=== PATIENT | male | born 1955 | race Caucasian/White ===

== ENCOUNTER 2022-08-19 19:40 | Inpatient (IN) | payer MEDICARE, OTHER ==
[~2022-08-19] VITALS: Ht 172.7 cm; Wt 60.8 kg
--- NOTE | 2022-08-19 19:48 | NUR ---
Dr. Jaciel Godoy at bedside for MSE for medical clearance.
[2022-08-19 20:04] LABS: HEMATOCRIT 33.3 % (36.7-47.1); MEAN CORPUSCULAR HEMOGLOBIN 30.8 uug (23.8-33.4); MEAN CORPUSCULAR VOLUME 89.7 fL (73.0-96.2); PLATELET COUNT (AUTO) 292 K/uL (152-348)
[2022-08-19 20:41] LABS: ALANINE AMINOTRANSFERASE 23 U/L (16-63); ALKALINE PHOSPHATASE 103 U/L (50-136); ASPARTATE AMINOTRANSFERASE < 5 U/L (15-37); BILIRUBIN,DIRECT < 0.1 mg/dL (0.0-0.2); BILIRUBIN,TOTAL 0.2 mg/dL (0.2-1.0); CARBON DIOXIDE 28 mmol/L (21-32); CHLORIDE 98 mmol/L (98-107); GLUCOSE 129 mg/dL (74-106); TOTAL PROTEIN, SERUM 6.7 g/dL (6.4-8.2); UREA NITROGEN, BLOOD 15 mg/dL (7-18)
[2022-08-19 20:46] LABS: ACETAMINOPHEN < 2.0 ug/mL (10-30)
[2022-08-19 21:04] LABS: *AMPHETAMINE, URINE NEGATIVE (NEGATIVE); *CANNABINOID, URINE NEGATIVE (NEGATIVE); *COCCAINE, URINE NEGATIVE (NEGATIVE); *PHENCYCLIDINE SCREEN,URINE NEGATIVE (NEGATIVE)
[2022-08-19 21:13] LABS: *BILIRUBIN,URIN NEGATIVE (NEGATIVE); *CLARITY,URINE CLEAR (CLEAR); *COLOR,URINE YELLOW (YELLOW); *KETONES,URINE NEGATIVE (NEGATIVE); *UROBILINOGEN,URINE 0.2 E.U./dl (NORMAL); LEUKOCYTE ESTERASE ,URINE NEGATIVE (NEGATIVE); NITRITE, URINE NEGATIVE (NEGATIVE); UGLUCOSE NEGATIVE (NEGATIVE)
[2022-08-19 21:38] LABS: *BLOOD, URINE TRACE (NEGATIVE)
--- NOTE | 2022-08-19 21:45 | NUR ---
Patient has been medically cleared by Dr Grissom
--- NOTE | 2022-08-19 22:12 | NUR ---
Called [facility] for psych eval
--- NOTE | 2022-08-19 22:46 | NUR ---
PET Team arrived to do eval.
[2022-08-19] MEDS ORDERED: PANT40TA49 PO (22:49)
[2022-08-19] MEDS ORDERED: FLUV100T3 PO (22:49)
[2022-08-19] MEDS ORDERED: QUET25TA PO (22:49)
[2022-08-19] MEDS ORDERED: FLUT1DIS28 IH (22:49)
[2022-08-19] MEDS ORDERED: DOCU100C36 PO (22:49)
[2022-08-19] MEDS ORDERED: ASPI81TA31 PO (22:49)
[2022-08-19] MEDS ORDERED: CITA20TA16 PO (22:49)
--- NOTE | 2022-08-19 23:25 | NUR ---
Report given to U HUNG Almonte.
--- NOTE | 2022-08-19 23:55 | NUR ---
Pt. admitted to [facility] unit room #145B, under care of Dr. Granados and Dr Albarran. Belongings list completed.
[2022-08-20] MEDS ORDERED: ACETAMINOPHEN 325 MG TABLET PO PRN
--- NOTE | 2022-08-20 | NUR ---
Admitted patient under the care of DR Albarran and Dr Galvan, patient alert oriented, continent of bladder. Patient has r check scratches, nose, forehead, and on left ear. Patient skin intact, with garbled speech, took away contraband belongings, place it in the bag, Patient calm and cooperative at this time. Patient wanted to get out of patio but reorient that, patio is lack at this time. Patient in and out of bed, ambulate with the walker with steady gait, cont to monitor.
[2022-08-20 00:02] LABS: BACTERIA,URINE NONE SEEN /HPF (NONE SEEN); RBC,URINE 0-3 /HPF (0-3); SQUAMOUS EPITHELIAL CELL,UR NONE SEEN /HPF (NONE SEEN); WBC,URINE 0-3 /HPF (0-3)
[2022-08-20 00:09] VITALS: BP 139/75
[2022-08-20] MEDS: ZOLPIDEM 5 MG TABLET PO PRN ×2 (00:48→22:02)
[2022-08-20] MEDS ORDERED: BENZ2AMP3 PO (02:27)
[2022-08-20] MEDS ORDERED: RISP2TAB5 PO (02:27)
[2022-08-20] MEDS ORDERED: PALI234D IM (02:27)
--- NOTE | 2022-08-20 03:53 | NUR ---
GPS: Pt.was given his advisement and pt's rights handbook. Unit rules explained. Safe environment provided.
[2022-08-20] MEDS ORDERED: REMEDY ESSENTIAL ZINC PASTE 113 GM TOP PRN (06:00)
[2022-08-20 07:30] VITALS: BP 129/99
[2022-08-20] MEDS: NICOTINE 21 MG/24HR PATCH TD SCH (08:45)
--- NOTE | 2022-08-20 10:16 | NUR ---
Nursing - Patient's sister Debi called providing more informations about her brother ( Marco) . Patient sister Stephany has the DPOA, will visit at noon today and will bring copies of pertinent data/papers necessary . Home # [phone], . Stephany was able to talked to Dr Albarran.
[2022-08-20] MEDS: risperiDONE 2 MG TABLET PO SCH ×2 (10:29→16:44)
[2022-08-20] MEDS: MAG HYDROX/AL HYDROX/SIMETH 30 ML LIQUID UDC PO PRN (11:30)
--- NOTE | 2022-08-20 13:00 | NUR ---
Nursing- Patients' sister Stephany came in to visit patient, brought copies of DPOA and Advance Directives for Health care, as well as she made a written informations on what transpired on patient Mental Health condition as well as his physical well being the past weeks, claimed he 's deteriorating and encouraged the staff to read it. Reassured Stephany(sister) will tell staff to read when they have the chance.
--- NOTE | 2022-08-20 14:48 | NUR ---
NICOLASA Initial Discharge Note: Pt currently resides at [facility] [address] [place] [address] ([phone]). Per facility, they are unable to continue care for the pt upon discharge. NICOLASA spoke with pt's sister/DPOA, Stephany [phone] who is aware that pt will not return to [facility]. Stephany is aware and agreeable that this medical technical writer will continue to work with her regarding pt's discharge plan. NICOLASA will continue to work with the pt, family and MD to ensure a safe and proper discharge plan.
[2022-08-20 16:14] VITALS: BP 92/50
[2022-08-20] MEDS: BENZTROPINE MESYLATE 1 MG TABLET PO SCH (16:43)
[2022-08-20 20:00] VITALS: BP 108/63
[2022-08-20] MEDS: MEMANTINE HCL 5 MG TABLET PO SCH (20:12)
[2022-08-21] MEDS: MAGNESIUM HYDROXIDE 30 ML LIQUID UDC PO PRN (00:11)
--- NOTE | 2022-08-21 00:14 | NUR ---
patient c/o constipation mom ml po given for constipation.
[2022-08-21] MEDS: ONDANSETRON ODT 4 MG TAB.RAPDIS SL PRN (03:43)
--- NOTE | 2022-08-21 03:45 | NUR ---
patient c/o nausea and vomited small amount clear liquid. zofran mg po prn given for nausea/vomit.
--- NOTE | 2022-08-21 04:51 | NUR ---
patient stated no more n/v,prn effective.
--- NOTE | 2022-08-21 04:53 | NUR ---
NSG: Remain calm and cooperative. patient ambulate with fww. po prn given for sleep and n/v. both prn effective. watching tv in day room. Denies pain or discomfort at this time. assisted with adl's. continue monitoring for safety.
--- NOTE | 2022-08-21 06:32 | NUR ---
slept 4 hrs through the night.
[2022-08-21 07:47] VITALS: BP 119/59
[2022-08-21] MEDS: NICOTINE 21 MG/24HR PATCH TD SCH (08:26)
[2022-08-21] MEDS: CITALOPRAM 20 MG TABLET PO SCH (08:27)
[2022-08-21] MEDS: BENZTROPINE MESYLATE 1 MG TABLET PO SCH ×2 (08:27→16:58)
[2022-08-21] MEDS: risperiDONE 2 MG TABLET PO SCH ×2 (08:27→16:58)
[2022-08-21] MEDS: MEMANTINE HCL 5 MG TABLET PO SCH ×2 (08:27→20:48)
[2022-08-21] MEDS: LORAZEPAM 1 MG TABLET PO PRN (14:24)
--- NOTE | 2022-08-21 14:38 | NUR ---
Received patient is alert and oriented x3 ,ambulating with walker ,interacts with staff when engaged, making simple needs know.compliant with all medication, attends and participates with his group . needed redirections sometime ,will continue close monitoring .
[2022-08-21 16:34] VITALS: BP 99/63
[2022-08-21 19:55] VITALS: BP 106/55
[2022-08-21] MEDS: ZOLPIDEM 5 MG TABLET PO PRN (20:48)
--- NOTE | 2022-08-22 06:58 | NUR ---
Pt was noted to be getting up multiple times through the night and stating he wants to go to the tv room. Pt is redirectable. Pt agreed to take a shower. Pt is forgetful, but redirectable.
[2022-08-22 08:12] VITALS: BP 110/67
[2022-08-22] MEDS: NICOTINE 21 MG/24HR PATCH TD SCH (08:47)
[2022-08-22] MEDS: BENZTROPINE MESYLATE 1 MG TABLET PO SCH ×2 (08:48→16:30)
[2022-08-22] MEDS: risperiDONE 2 MG TABLET PO SCH ×2 (08:48→16:31)
[2022-08-22] MEDS: CITALOPRAM 20 MG TABLET PO SCH (08:48)
[2022-08-22] MEDS: MEMANTINE HCL 5 MG TABLET PO SCH ×2 (08:48→20:06)
[2022-08-22] MEDS: ONDANSETRON ODT 4 MG TAB.RAPDIS SL PRN (10:16)
[2022-08-22] MEDS: LORAZEPAM 1 MG TABLET PO PRN (11:12)
[2022-08-22 13:44] LABS: HEMATOCRIT 33.4 % (36.7-47.1); MEAN CORPUSCULAR HEMOGLOBIN 30.8 uug (23.8-33.4); PLATELET COUNT (AUTO) 304 K/uL (152-348)
[2022-08-22 13:59] LABS: BILIRUBIN,TOTAL 0.3 mg/dL (0.2-1.0); CREATININE 0.9 mg/dL (0.6-1.3); POTASSIUM 4.3 mmol/L (3.5-5.1); TOTAL PROTEIN, SERUM 7.1 g/dL (6.4-8.2)
[2022-08-22 16:37] VITALS: BP 101/71
--- NOTE | 2022-08-22 16:50 | NUR ---
Received patient is alert and oriented x3 ,ambulating with walker ,interacts with staff when engaged, making simple needs know.compliant with all medication, attends and participates with his group . ambulating with FWW needed redirections sometime ,will continue close monitoring .
[2022-08-22] MEDS ORDERED: FLUTICASONE/SALMETEROL 250/50 INHALER IH SCH (17:30)
[2022-08-22] MEDS: ASPIRIN 81 MG TAB.CHEW PO SCH (17:30)
[2022-08-22] MEDS: DOCUSATE SODIUM 100 MG CAPSULE PO SCH (17:44)
[2022-08-22] MEDS: FLUTICASONE/VILANTEROL 1 EACH BLST.W.DEV INH SCH (18:30)
[2022-08-22 19:53] VITALS: BP 104/68
--- NOTE | 2022-08-23 04:54 | NUR ---
Received pt in dinning room watching television, less anxious, pleasant on approach and cooperative. Pt is compliant with medications and care. Pt needs minimal assistance with ADLs and ambulates with front wheel walker. Reassurance and emotional support provided, safety measures in place. Continue to monitor for safety.
[2022-08-23] MEDS: PANTOPRAZOLE SODIUM 40 MG TABLET.DR PO SCH (06:24)
[2022-08-23 08:12] VITALS: BP 94/62
[2022-08-23] MEDS: risperiDONE 2 MG TABLET PO SCH ×2 (08:28→17:06)
[2022-08-23] MEDS: BENZTROPINE MESYLATE 1 MG TABLET PO SCH ×2 (08:28→17:06)
[2022-08-23] MEDS: CITALOPRAM 20 MG TABLET PO SCH (08:28)
[2022-08-23] MEDS: DOCUSATE SODIUM 100 MG CAPSULE PO SCH (08:28)
[2022-08-23] MEDS: ASPIRIN 81 MG TAB.CHEW PO SCH (08:28)
[2022-08-23] MEDS: NICOTINE 21 MG/24HR PATCH TD SCH (08:28)
[2022-08-23] MEDS: MEMANTINE HCL 5 MG TABLET PO SCH ×2 (08:28→21:23)
[2022-08-23] MEDS: FLUTICASONE/VILANTEROL 1 EACH BLST.W.DEV INH SCH (08:29)
[2022-08-23 16:04] VITALS: BP 100/65
[2022-08-23 19:46] VITALS: BP 104/65
[2022-08-23] MEDS: FLUVOXAMINE MALEATE 50 MG TABLET PO SCH (21:23)
[2022-08-24] MEDS: PANTOPRAZOLE SODIUM 40 MG TABLET.DR PO SCH (06:49)
[2022-08-24 07:44] LABS: CREATININE 0.8 mg/dL (0.6-1.3); MAGNESIUM 2.1 mg/dL (1.8-2.4); POTASSIUM 4.5 mmol/L (3.5-5.1)
[2022-08-24 08:23] VITALS: BP 107/56
[2022-08-24 08:31] LABS: THYROID STIMULATING HORMONE 0.732 mIU/mL (0.358-3.740)
[2022-08-24] MEDS: NICOTINE 21 MG/24HR PATCH TD SCH (08:55)
[2022-08-24] MEDS: DOCUSATE SODIUM 100 MG CAPSULE PO SCH (08:56)
[2022-08-24] MEDS: FLUTICASONE/VILANTEROL 1 EACH BLST.W.DEV INH SCH (08:56)
[2022-08-24] MEDS: risperiDONE 2 MG TABLET PO SCH ×2 (08:56→16:31)
[2022-08-24] MEDS: MEMANTINE HCL 5 MG TABLET PO SCH ×2 (08:56→21:06)
[2022-08-24] MEDS: ASPIRIN 81 MG TAB.CHEW PO SCH (08:56)
[2022-08-24] MEDS: BENZTROPINE MESYLATE 1 MG TABLET PO SCH ×2 (08:56→16:31)
--- NOTE | 2022-08-24 15:23 | NUR ---
Received patient awake in his room. Patient is talkative, disorganized, forgetful, confused at times, cooperative with nursing care, compliant with medications. Patient is A/O X 2 to person. Patient interacts with staff, peers, and participates in group activities. Reassurance given. Fall and safety precautions implemented.
[2022-08-24 15:50] VITALS: BP 114/79
[2022-08-24 19:51] VITALS: BP 106/68
[2022-08-24] MEDS: FLUVOXAMINE MALEATE 50 MG TABLET PO SCH (21:06)
[2022-08-24] MEDS: LORAZEPAM 1 MG TABLET PO PRN (21:54)
--- NOTE | 2022-08-24 22:05 | NUR ---
Shortly after taking his 2100 hour medications, pt stated he needed help because his mind was restless. Pt stated "I can't stop my mind." "I need help to stop my mind." Pt denied SI/HI and is contracted for safety. Gave Ativan 1mg to help calm his thoughts and overall mood. Will continue to provide a safe environment.
[2022-08-25] MEDS: MAGNESIUM HYDROXIDE 30 ML LIQUID UDC PO PRN (05:48)
--- NOTE | 2022-08-25 05:51 | NUR ---
Pt requested medication to help with having a BM. Pt stated "I have not gone in a few days." "I can't go on my own." Gave MOM 30mL po prn for constipation mgt. Will continue to monitor.
[2022-08-25] MEDS: PANTOPRAZOLE SODIUM 40 MG TABLET.DR PO SCH (06:35)
[2022-08-25 07:38] VITALS: BP 92/62
[2022-08-25] MEDS: FLUTICASONE/VILANTEROL 1 EACH BLST.W.DEV INH SCH (08:49)
[2022-08-25] MEDS: NICOTINE 21 MG/24HR PATCH TD SCH (08:49)
[2022-08-25] MEDS: ASPIRIN 81 MG TAB.CHEW PO SCH (08:50)
[2022-08-25] MEDS: risperiDONE 2 MG TABLET PO SCH ×2 (08:50→16:24)
[2022-08-25] MEDS: MEMANTINE HCL 5 MG TABLET PO SCH ×2 (08:50→21:08)
[2022-08-25] MEDS: DOCUSATE SODIUM 100 MG CAPSULE PO SCH (08:50)
[2022-08-25] MEDS: BENZTROPINE MESYLATE 1 MG TABLET PO SCH ×2 (08:50→16:24)
[2022-08-25] MEDS ORDERED: PALIPERIDONE PALMITATE 234 MG/1.5 ML SYRINGE IM SCH (09:00)
--- NOTE | 2022-08-25 09:45 | NUR ---
Invega 234 mg/1.5 ml given at 09:40AM as prescribed monthly.
--- NOTE | 2022-08-25 14:54 | NUR ---
Patient is talkative, confused, disorganized, needs to be redirected, demanding, needy. A/O X 2 to person, place. Reality orientation provided. Fall and safety precautions implemented.
[2022-08-25 15:07] VITALS: BP 107/68
[2022-08-25 19:56] VITALS: BP 108/75
[2022-08-25] MEDS: FLUVOXAMINE MALEATE 50 MG TABLET PO SCH (21:09)
[2022-08-26] MEDS: PANTOPRAZOLE SODIUM 40 MG TABLET.DR PO SCH (07:06)
[2022-08-26] MEDS: NICOTINE 21 MG/24HR PATCH TD SCH (09:03)
[2022-08-26] MEDS: MEMANTINE HCL 5 MG TABLET PO SCH ×2 (09:04→21:05)
[2022-08-26] MEDS: BENZTROPINE MESYLATE 1 MG TABLET PO SCH ×2 (09:04→17:33)
[2022-08-26] MEDS: ASPIRIN 81 MG TAB.CHEW PO SCH (09:04)
[2022-08-26] MEDS: FLUTICASONE/VILANTEROL 1 EACH BLST.W.DEV INH SCH (09:04)
[2022-08-26] MEDS: DOCUSATE SODIUM 100 MG CAPSULE PO SCH (09:04)
[2022-08-26 09:08] VITALS: BP 106/58
--- NOTE | 2022-08-26 14:15 | NUR ---
Patient had court hearing today, and dinkey operator Sheila Morales gave 14 Day probable for GD only.
[2022-08-26 15:30] VITALS: BP 115/75
[2022-08-26] MEDS: LORAZEPAM 1 MG TABLET PO PRN (15:52)
--- NOTE | 2022-08-26 16:01 | NUR ---
Patient is given Ativan 1 mg at 15:52, will be monitored for effectiveness.
--- NOTE | 2022-08-26 19:50 | NUR ---
Patient is cooperative with nursing care, demanding, needy, compliant with medications, anxious at times. A/O X 2 to person, place. Patient is encourage to verbalize concerns. Fall and safety precautions implemented.
[2022-08-26 20:36] VITALS: BP 115/67
[2022-08-26] MEDS: FLUVOXAMINE MALEATE 50 MG TABLET PO SCH (21:06)
--- NOTE | 2022-08-26 23:22 | NUR ---
GPS: Pt.is less anxious and needy tonight so far. Re-directed and re-assured prn. Safety emphasized. Needs attended. Will continue to monitor.
[2022-08-27] MEDS: MAG HYDROX/AL HYDROX/SIMETH 30 ML LIQUID UDC PO PRN (04:02)
[2022-08-27] MEDS: PANTOPRAZOLE SODIUM 40 MG TABLET.DR PO SCH (06:03)
--- NOTE | 2022-08-27 07:30 | NUR ---
GPS Nursing Notes: patient in bed awake, denies pain or discomforts, Fall and safety precautions implemented.
[2022-08-27 08:00] VITALS: BP 115/76
[2022-08-27] MEDS: NICOTINE 21 MG/24HR PATCH TD SCH (08:22)
[2022-08-27] MEDS: ASPIRIN 81 MG TAB.CHEW PO SCH (08:22)
[2022-08-27] MEDS: FLUTICASONE/VILANTEROL 1 EACH BLST.W.DEV INH SCH (08:22)
[2022-08-27] MEDS: BENZTROPINE MESYLATE 1 MG TABLET PO SCH ×2 (08:22→17:18)
[2022-08-27] MEDS: DOCUSATE SODIUM 100 MG CAPSULE PO SCH (08:22)
[2022-08-27] MEDS ORDERED: MEMANTINE HCL 5 MG TABLET PO SCH (09:00)
[2022-08-27] MEDS: MEMANTINE HCL 10 MG TABLET PO SCH ×2 (09:03→20:52)
--- NOTE | 2022-08-27 10:29 | NUR ---
GPS Nursing notes: Patient is pacing up and down hallway, forgetful at times, confused, with disorganized thoughts, "You need to remember 503", patient follow directions, took morning medications. Encourage patient to use FWW when he ambulates. fall and safety precaution implemented, emotional support provided.
--- NOTE | 2022-08-27 11:56 | NUR ---
SW Discharge Update: NICOLASA spoke with pt's sister/DPOA, Stephany [phone] who stated she is happy with Dr. Albarran's care and would like for the pt to continue care under Dr. Albarran. Per Dr. Albarran, NICOLASA will refer to [facility]. NICOLASA will update Stephany on updates.
[2022-08-27 15:12] VITALS: BP 125/81
[2022-08-27 20:05] VITALS: BP 127/74
[2022-08-27] MEDS: FLUVOXAMINE MALEATE 50 MG TABLET PO SCH (20:52)
[2022-08-27] MEDS: LORAZEPAM 1 MG TABLET PO PRN (23:10)
[2022-08-28] MEDS: LORAZEPAM 1 MG TABLET PO PRN ×2 (05:38→15:18)
[2022-08-28] MEDS: PANTOPRAZOLE SODIUM 40 MG TABLET.DR PO SCH (06:10)
--- NOTE | 2022-08-28 06:36 | NUR ---
GPS: Pt.slept 5.15 last night. Pt.was anxious,restless earlier. Re-assured and re-directed. Ativan 1mg given PO with effect. Safe environment provided. Needs attended. Denies SI at this time.
--- NOTE | 2022-08-28 07:15 | NUR ---
GPS Nursing notes: Patient is in room lying in bed, no S/S of distress. Will continue to monitor.
[2022-08-28 07:44] VITALS: BP 118/59
[2022-08-28] MEDS: BENZTROPINE MESYLATE 1 MG TABLET PO SCH ×2 (08:40→16:20)
[2022-08-28] MEDS: MEMANTINE HCL 10 MG TABLET PO SCH ×2 (08:40→20:00)
[2022-08-28] MEDS: NICOTINE 21 MG/24HR PATCH TD SCH (08:40)
[2022-08-28] MEDS: DOCUSATE SODIUM 100 MG CAPSULE PO SCH (08:40)
[2022-08-28] MEDS: FLUTICASONE/VILANTEROL 1 EACH BLST.W.DEV INH SCH (08:41)
[2022-08-28] MEDS: ASPIRIN 81 MG TAB.CHEW PO SCH (08:41)
--- NOTE | 2022-08-28 09:39 | NUR ---
GPS Nursing notes: Patient is ambulating with FWW this morning, patient stated " I am Exercising", denies pain or this comfort. fall and safety precaution implemented. Will continue to monitor.
--- NOTE | 2022-08-28 13:17 | NUR ---
GPS Nursing notes: Patient focus on drinking water constantly, educated patient not over-hydrated him self, patient also take water from the sink, needs frequent redirection, patient refused to showered at this time. fall and safety precautions implemented, emotional support provided.
[2022-08-28 16:30] VITALS: BP 103/66
[2022-08-28 20:00] VITALS: BP 120/66
[2022-08-28] MEDS: FLUVOXAMINE MALEATE 50 MG TABLET PO SCH (20:00)
[2022-08-29] MEDS: PANTOPRAZOLE SODIUM 40 MG TABLET.DR PO SCH (06:11)
[2022-08-29] MEDS: LORAZEPAM 1 MG TABLET PO PRN ×2 (06:49→15:02)
[2022-08-29 08:09] VITALS: BP 105/66
[2022-08-29] MEDS: NICOTINE 21 MG/24HR PATCH TD SCH (08:29)
[2022-08-29] MEDS: BENZTROPINE MESYLATE 1 MG TABLET PO SCH ×2 (08:29→17:15)
[2022-08-29] MEDS: ASPIRIN 81 MG TAB.CHEW PO SCH (08:29)
[2022-08-29] MEDS: DOCUSATE SODIUM 100 MG CAPSULE PO SCH (08:30)
[2022-08-29] MEDS: MEMANTINE HCL 10 MG TABLET PO SCH ×2 (08:30→20:29)
[2022-08-29] MEDS: FLUTICASONE/VILANTEROL 1 EACH BLST.W.DEV INH SCH (08:31)
--- NOTE | 2022-08-29 16:05 | NUR ---
Received patient is alert and oriented x3 ,ambulating with walker ,interacts with staff when engaged, making simple needs know.compliant with all medication, needy and attention seeking ,attends and participates with his group . ambulating with FWW needed redirections sometime ,will continue close monitoring .
[2022-08-29 16:20] VITALS: BP 105/77
[2022-08-29 19:50] VITALS: BP 139/91
[2022-08-29] MEDS: FLUVOXAMINE MALEATE 50 MG TABLET PO SCH (20:29)
[2022-08-30] MEDS: LORAZEPAM 1 MG TABLET PO PRN ×2 (00:36→18:07)
--- NOTE | 2022-08-30 00:44 | NUR ---
Gave pt Lorazepam po prn for increased anxiety and to help pt calm down. Pt was making statement such as "I can't think anymore." "I'm like a 4 y/o now." Safe environment provided. Will continue to monitor.
[2022-08-30] MEDS: ZOLPIDEM 5 MG TABLET PO PRN (02:59)
[2022-08-30] MEDS: PANTOPRAZOLE SODIUM 40 MG TABLET.DR PO SCH (06:04)
[2022-08-30 07:55] VITALS: BP 131/84
[2022-08-30] MEDS: MEMANTINE HCL 10 MG TABLET PO SCH ×2 (08:37→20:06)
[2022-08-30] MEDS: BENZTROPINE MESYLATE 1 MG TABLET PO SCH ×2 (08:37→17:13)
[2022-08-30] MEDS: FLUTICASONE/VILANTEROL 1 EACH BLST.W.DEV INH SCH (08:37)
[2022-08-30] MEDS: ASPIRIN 81 MG TAB.CHEW PO SCH (08:37)
[2022-08-30] MEDS: DOCUSATE SODIUM 100 MG CAPSULE PO SCH (08:37)
[2022-08-30] MEDS: NICOTINE 21 MG/24HR PATCH TD SCH (08:38)
[2022-08-30 16:21] VITALS: BP 103/70
[2022-08-30] MEDS ORDERED: OLANZAPINE 10 MG VIAL IM ONE (18:30)
--- NOTE | 2022-08-30 18:40 | NUR ---
noted patient pacing in hallway hitting himself and scratched his face and right ear ,Dr. Albarran notified with Zyprexa 10 mg IM given .
[2022-08-30 19:46] VITALS: BP 111/74
[2022-08-30] MEDS: FLUVOXAMINE MALEATE 50 MG TABLET PO SCH (20:05)
[2022-08-31] MEDS: PANTOPRAZOLE SODIUM 40 MG TABLET.DR PO SCH (06:20)
[2022-08-31 06:58] LABS: MEAN CORPUSCULAR HEMOGLOBIN 31.2 uug (23.8-33.4); MEAN CORPUSCULAR VOLUME 89.8 fL (73.0-96.2); PLATELET COUNT (AUTO) 377 K/uL (152-348)
[2022-08-31 07:30] LABS: BILIRUBIN,TOTAL 0.2 mg/dL (0.2-1.0); CREATININE 0.9 mg/dL (0.6-1.3); PHOSPHOROUS 3.3 mg/dL (2.5-4.9); POTASSIUM 4.3 mmol/L (3.5-5.1); TOTAL PROTEIN, SERUM 6.9 g/dL (6.4-8.2)
--- NOTE | 2022-08-31 07:30 | NUR ---
GPS Nursing notes: Patient walking down hallway, ambulating with FWW, focus on discharge, patient spoke with dr Gastelum, due yesterday behavior patient staying in unit, discharge cancel by Psychiatrist. Fall and safety precaution implemented, emotional support provided.
[2022-08-31 08:00] VITALS: BP 98/70
[2022-08-31] MEDS: FLUTICASONE/VILANTEROL 1 EACH BLST.W.DEV INH SCH (08:42)
[2022-08-31] MEDS: MEMANTINE HCL 10 MG TABLET PO SCH ×2 (08:42→20:48)
[2022-08-31] MEDS: LITHIUM CARBONATE 300 MG CAPSULE PO SCH ×2 (08:42→16:15)
[2022-08-31] MEDS: BENZTROPINE MESYLATE 1 MG TABLET PO SCH ×2 (08:42→16:15)
[2022-08-31] MEDS: NICOTINE 21 MG/24HR PATCH TD SCH (08:43)
[2022-08-31] MEDS: DOCUSATE SODIUM 100 MG CAPSULE PO SCH (08:43)
[2022-08-31] MEDS: ASPIRIN 81 MG TAB.CHEW PO SCH (08:44)
[2022-08-31] MEDS: LORAZEPAM 1 MG TABLET PO PRN ×3 (09:26→18:09)
--- NOTE | 2022-08-31 11:59 | NUR ---
GPS Nursing Notes: Patient crying aloud, stated "I dont want to be on the street", Patient worries about not going to SNF, PRN for anxiety given, slight effective, patient spoke to sister, Per Patient "I was hitting my self yesterday". Redirected on express feeling in an appropriated manner. Fall and safety precautions implemented, emotional support provided. Will continue to monitor.
[2022-08-31 16:00] VITALS: BP 115/71
--- NOTE | 2022-08-31 18:36 | NUR ---
GPS nursing notes: Patient crying loudly, when ask why was he crying he stated, "The lady is talking and laugh at me!" reassure patient that no one was talking about him, emotional support provided, instructed patient to express his concerns and feels in an appropriated manner, as needed medication for anxiety given, continue to provided emotional support.
[2022-08-31 20:03] VITALS: BP 111/68
[2022-08-31] MEDS: FLUVOXAMINE MALEATE 50 MG TABLET PO SCH (20:48)
[2022-09-01] MEDS: PANTOPRAZOLE SODIUM 40 MG TABLET.DR PO SCH (06:50)
[2022-09-01 08:00] VITALS: BP 124/82
[2022-09-01] MEDS: LITHIUM CARBONATE 300 MG CAPSULE PO SCH ×2 (08:18→16:37)
[2022-09-01] MEDS: BENZTROPINE MESYLATE 1 MG TABLET PO SCH ×2 (08:18→16:37)
[2022-09-01] MEDS: MEMANTINE HCL 10 MG TABLET PO SCH ×2 (08:18→20:38)
[2022-09-01] MEDS: DOCUSATE SODIUM 100 MG CAPSULE PO SCH (08:18)
[2022-09-01] MEDS: ASPIRIN 81 MG TAB.CHEW PO SCH (08:18)
[2022-09-01] MEDS: FLUTICASONE/VILANTEROL 1 EACH BLST.W.DEV INH SCH (08:19)
[2022-09-01] MEDS: NICOTINE 21 MG/24HR PATCH TD SCH (08:19)
--- NOTE | 2022-09-01 10:26 | NUR ---
NICOLASA Discharge Update: NICOLASA spoke with pt's sister/DPOA, Stephany [phone] and left a voicemail informing Stephany of pt's discharge to [facility] on Tuesday09/03/22 to [address] [place] [address] ([phone]). Stephany was previosly agreeable for pt to discharge to a facility where psychiatrist, Dr. Albarran will continue care.
[2022-09-01] MEDS: LORAZEPAM 1 MG TABLET PO PRN (10:40)
--- NOTE | 2022-09-01 14:59 | NUR ---
Received patient pacing in the hallway. Patient is A/O X 2 to person, place. Patient is demanding, needy, compliant with medications, cooperative with nursing care, disorganized, forgetful. Patient is encourage to verbalize concerns. Safety and fall precautions implemented.
[2022-09-01 16:00] VITALS: BP 124/56
--- NOTE | 2022-09-01 19:56 | NUR ---
Patient sleeping during initial rounds. In no acute respiratory distress. Safety measures and fall prevention continuos. VS stable.
[2022-09-01 20:00] VITALS: BP 117/76
[2022-09-01] MEDS: FLUVOXAMINE MALEATE 50 MG TABLET PO SCH (20:38)
[2022-09-02] MEDS: PANTOPRAZOLE SODIUM 40 MG TABLET.DR PO SCH (05:59)
--- NOTE | 2022-09-02 06:33 | NUR ---
Very cooperative, compliant with medications. No complaint presented all night. Slept total of 7:15 hours. Continue care as planned.
[2022-09-02 07:47] VITALS: BP 132/77
[2022-09-02] MEDS: MEMANTINE HCL 10 MG TABLET PO SCH ×2 (08:44→20:55)
[2022-09-02] MEDS: NICOTINE 21 MG/24HR PATCH TD SCH (08:44)
[2022-09-02] MEDS: ASPIRIN 81 MG TAB.CHEW PO SCH (08:44)
[2022-09-02] MEDS: FLUTICASONE/VILANTEROL 1 EACH BLST.W.DEV INH SCH (08:45)
[2022-09-02] MEDS: BENZTROPINE MESYLATE 1 MG TABLET PO SCH ×2 (08:45→16:54)
[2022-09-02] MEDS: DOCUSATE SODIUM 100 MG CAPSULE PO SCH (08:45)
[2022-09-02] MEDS: LITHIUM CARBONATE 300 MG CAPSULE PO SCH ×2 (08:45→16:55)
--- NOTE | 2022-09-02 10:36 | NUR ---
SW Discharge Update: SW spoke with pt's sister/DPOA, Stephany [phone] regarding pt's discharge to [facility] on Tuesday09/03/22 to [address] [address] ([phone]). Stephany is aware and agreeable.
[2022-09-02] MEDS: LORAZEPAM 1 MG TABLET PO PRN (12:01)
--- NOTE | 2022-09-02 12:10 | NUR ---
Ativan 1 mg is given at 12:01 for anxiety, will be monitored for effectiveness.
--- NOTE | 2022-09-02 14:31 | NUR ---
Patient is restless, pacing in the hallway, repetitive with words and actions, demanding, needy, needs to be redirected, disorganized, confused, forgetful, compliant with medications. Patient is A/O X 2 to person, place. Reassurance give. Fall and safety precautions implemented.
[2022-09-02 16:17] VITALS: BP 107/69
[2022-09-02 20:46] VITALS: BP 109/72
[2022-09-02] MEDS: FLUVOXAMINE MALEATE 50 MG TABLET PO SCH (20:55)
[2022-09-02] MEDS: ZOLPIDEM 5 MG TABLET PO PRN (22:39)
--- NOTE | 2022-09-03 04:38 | NUR ---
Pt is disorganized and forgetful. Pt is restless, anxious, pacing in the hallway. Patient is A/O X 2 to person, place. Pt can be demanding and needy, coming to nurse station constantly asking for things and at times not making any sense. Pt is compliant with medications and cooperative with nursing care. Encourage to verbalize concerns. Safety and fall precautions implemented. Continue to monitor for safety.
[2022-09-03] MEDS: PANTOPRAZOLE SODIUM 40 MG TABLET.DR PO SCH (06:42)
[2022-09-03 08:15] VITALS: BP 124/79
[2022-09-03] MEDS: NICOTINE 21 MG/24HR PATCH TD SCH (08:33)
[2022-09-03] MEDS: BENZTROPINE MESYLATE 1 MG TABLET PO SCH (08:34)
[2022-09-03] MEDS: DOCUSATE SODIUM 100 MG CAPSULE PO SCH (08:34)
[2022-09-03] MEDS: MEMANTINE HCL 10 MG TABLET PO SCH (08:34)
[2022-09-03] MEDS: FLUTICASONE/VILANTEROL 1 EACH BLST.W.DEV INH SCH (08:34)
[2022-09-03] MEDS: ASPIRIN 81 MG TAB.CHEW PO SCH (08:34)
[2022-09-03] MEDS: LITHIUM CARBONATE 300 MG CAPSULE PO SCH (08:34)
--- NOTE | 2022-09-03 09:25 | NUR ---
SW Discharge Screener: SW discharge screener completed with the pt.
--- NOTE | 2022-09-03 10:08 | NUR ---
NICOLASA Discharge Note: Pt will be discharged to [facility] located at [address] [place] [id number] ([phone]) via Ambulance transportation at 11AM. NICOLASA spoke with Jose muñiz [phone] at the facility who states they are ready to accept the patient today. Pt is aware and agreeable with discharge plan. Pt's sister/DPOA, Stephany [phone] is aware and agreeable with the discharge plan. Pt is aware and agreeable with discharge plan. Pt is alert and oriented x2, is unable to plan for self-care at this time. However, pt is willing to accept care at SNF. Pt denies any suicidal or homicidal ideation. Pt will follow-up at the facility with Psychiatrist, Dr. Albarran [phone] and [facility] Weir, Dr. Quan. Pt presents with calm mood and congruent affect. PHARMACY: [facility] ([phone]) [address] [place] [address].
--- NOTE | 2022-09-03 11:41 | NUR ---
Received orders to discharge patient to [facility] located at [address] [place] [phone] ([phone]) via Ambulance transportation at 11AM. Patient is agreeable with discharge plans, but refused signing all discharge documentation. Patient denies SI/HI AH/VH, SOB, pain or any discomfort. Patient left unit at 11:30AM. Emotional support provided. Fall and safety precautions implemented.
== END 2022-09-03 11:30 | DRG 885 ==
LOC: ER 19:43 → GPS 21:41
PROVIDERS: ADMIT Psychiatry & Neurology Psychiatry; ATTEND Nurse Practitioner Family
DX: F20.0 Paranoid schizophrenia (principal); E87.1 Hypo-osmolality and hyponatremia; E44.1 Mild protein-calorie malnutrition; F02.811 Dementia in other diseases classified elsewhere, unspecified severity, with agitation; F02.83 Dementia in other diseases classified elsewhere, unspecified severity, with mood disturbance; G30.9 Alzheimer's disease, unspecified; F42.9 Obsessive-compulsive disorder, unspecified; F32.A Depression, unspecified; J44.9 Chronic obstructive pulmonary disease, unspecified; Z87.891 Personal history of nicotine dependence; E88.09 Other disorders of plasma-protein metabolism, not elsewhere classified; D64.9 Anemia, unspecified; Z88.8 Allergy status to other drugs, medicaments and biological substances; Z91.199 Patient's noncompliance with other medical treatment and regimen due to unspecified reason; Z79.899 Other long term (current) drug therapy
CPT/HCPCS: 36415; 70450; 74018; 82533; 83690; 83735; 83935; 84100; 84300; 84443; 84550; 85025; G0480; J2358; J2426; Q0162